=== PATIENT | female | born 1990 | race Two or more races ===

== ENCOUNTER 2018-09-20 10:21 | Inpatient (IN) | payer OTHER ==
[~2018-09-20] VITALS: Ht 148 cm; Wt 53.5 kg
[2018-09-20 11:20] LABS: EOSINOPHILS % (AUTO) 2.1 % (1.0-6.0); HEMATOCRIT 35.9 % (36-46); HEMOGLOBIN 12.4 g/dL (12.0-16.0); LYMPHOCYTES # (AUTO) 2.3 K/uL (1.0-4.8); LYMPHOCYTES % (AUTO) 27.2 % (22.0-44.0); MEAN CORPUSCULAR HEMOGLOBIN 27.4 pg (26.0-34.0); MEAN CORPUSCULAR HGB CONC 34.5 G/dL (31.0-37.0); MEAN CORPUSCULAR VOLUME 79 fL (80-100); MONOCYTES # (AUTO) 0.6 K/uL (0.1-1.0); MONOCYTES % (AUTO) 7.2 % (2.0-9.0); NEUTROPHILS # (AUTO) 5.3 K/uL (1.8-7.7); NEUTROPHILS % (AUTO) 62.5 % (40.0-70.0); RED BLOOD CELL COUNT(AUTO) 4.53 MIL/uL (4.00-5.20); RED CELL DISTRIBUTION WIDTH 14.3 % (11.5-14.5)
[2018-09-20 11:37] LABS: ANION GAP 8 mmol/L (8-16); CALCIUM, TOTAL 9.2 mg/dL (8.8-10.5); CARBON DIOXIDE 26 mmol/L (22-29); CHLORIDE 104 mmol/L (98-107); CREATININE 0.51 mg/dL (0.60-1.30); GLOMERULAR FILTR. RATE CALC > 60 mL/min (>60); GLUCOSE,RANDOM 95 mg/dL (70-110); SODIUM SERUM 138 mmol/L (136-145); UREA NITROGEN, BLOOD 10 mg/dL (7-18)
[2018-09-20 11:40] LABS: ALANINE AMINOTRANSFERASE 19 U/L (12-78); ALBUMIN 2.5 g/dL (3.4-5.0); ALKALINE PHOSPHATASE 194 U/L (46-116); ASPARTATE AMINOTRANSFERASE 22 U/L (15-37); BILIRUBIN,TOTAL 0.4 mg/dL (0.1-1.0); TOTAL PROTEIN, SERUM 6.8 g/dL (6.4-8.2); URIC ACID 5.8 mg/dL (2.6-7.2)
[2018-09-20 12:26] LABS: PLATELET COUNT (AUTO) 89 K/uL (150-450); PLATELET MORPHOLOGY COMMENT GIANT PLTS PRESENT
[2018-09-20] MEDS ORDERED: RINGERS SOLUTION,LACTATED 1,000 ML IV ONE (15:49)
[2018-09-20] MEDS ORDERED: METOCLOPRAMIDE HCL 5 MG/ML 2 ML VIAL IVP ONE (16:00)
[2018-09-20] MEDS ORDERED: CITRIC ACID/SODIUM CITRATE 30 ML SOLUTION UDCUP PO ONE (16:00)
[2018-09-20 16:40] VITALS: BP 130/88
[2018-09-20] MEDS ORDERED: FOLI0.4T14 PO (16:50)
[2018-09-20] MEDS ORDERED: METF-445 PO (16:50)
[2018-09-20] MEDS ORDERED: FERR-89 PO (16:50)
[2018-09-20] MEDS ORDERED: CALC-1038 PO (16:50)
[2018-09-20] MEDS ORDERED: INSU100V SQ (16:50)
[2018-09-20] MEDS ORDERED: PREN1TAB80 PO (16:50)
[2018-09-20] MEDS ORDERED: INSNPH SQ ×2 (16:50)
[2018-09-20] MEDS ORDERED: FentaNYL CITRATE-PF 100 MCG/2 ML VIAL ONE (17:27)
[2018-09-20] MEDS ORDERED: BUPIVACAINE HCL/DEX-WATER/PF 0.75% 2 ML AMP ONE (17:28)
[2018-09-20] MEDS ORDERED: ACETAMINOPHEN 1000 MG/ISO-OSM 100 ML IV ONE (17:28)
[2018-09-20] MEDS ORDERED: MORPHINE SULFATE/PF 0.5 MG/ML 10 ML AMP ONE (17:28)
[2018-09-20] MEDS ORDERED: DEXTROSE 5%-LACTATED RINGERS 1,000 ML ONE (18:06)
[2018-09-20] MEDS ORDERED: DEXTROSE 5%-0.2% SODIUM CHL 1,000 ML IV ONE (18:06)
[2018-09-20] MEDS ORDERED: DEXTROSE 50%-WATER 25 GM/50 ML SYRINGE IVP ONE (18:15)
[2018-09-20] MEDS ORDERED: ONDANSETRON HCL 4 MG/2 ML VIAL IVP PRN ×2 (18:30→18:45)
[2018-09-20] MEDS ORDERED: NALBUPHINE HCL 10 MG/ML VIAL IVP PRN ×3 (18:30→18:45)
[2018-09-20] MEDS ORDERED: DiphenhydrAMINE HCL 50 MG/ML VIAL IVP PRN ×2 (18:30→18:45)
[2018-09-20] MEDS ORDERED: DEXAMETHASONE SOD PHOS 4 MG/ML VIAL IVP PRN (18:30)
[2018-09-20] MEDS ORDERED: NALOXONE HCL 0.4 MG/ML VIAL IVP PRN (18:45)
[2018-09-20] MEDS ORDERED: MORPHINE SULFATE 10 MG/ML SYRINGE IVP PRN (18:45)
[2018-09-20] MEDS ORDERED: FentaNYL CITRATE-PF 100 MCG/2 ML VIAL IVP PRN (18:45)
[2018-09-20] MEDS ORDERED: ACETAMINOPHEN/CODEINE 300-30 MG TABLET PO PRN ×2 (19:00)
[2018-09-20] MEDS ORDERED: LANOLIN 7 GM OINTMENT TP PRN (19:00)
[2018-09-20 19:34] LABS: GLUCOMETER DEV NAME(LOC) 4S.; GLUCOSE,POINT OF CARE 111 MG/DL (70-110)
[2018-09-20] MEDS ORDERED: ONDANSETRON HCL 4 MG/2 ML VIAL ONE (19:36)
[2018-09-20] MEDS ORDERED: OXYGEN THERAPY IH SCH ×3 (20:00)
[2018-09-20] MEDS ORDERED: DEXTROSE 5%-0.45% SODIUM CHL 1,000 ML IV ONE (20:08)
[2018-09-20 20:49] LABS: GLUCOMETER DEV NAME(LOC) 4S.; GLUCOSE,POINT OF CARE 122 MG/DL (70-110)
[2018-09-20] MEDS: DEXTROSE 5%-0.45% SODIUM CHL 1,000 ML IV SCH (20:51)
[2018-09-20] MEDS: MAGNESIUM HYDROXIDE SUSPENSION 30 ML UDCUP PO SCH (22:28)
[2018-09-21] MEDS: ACETAMINOPHEN 1000 MG/ISO-OSM 100 ML IV SCH ×2 (02:25→10:29)
[2018-09-21] MEDS ORDERED: 0.9% SODIUM CHLORIDE 10 ML VIAL IVP ONE (02:41)
[2018-09-21] MEDS ORDERED: OXYTOCIN 10 UNITS/ML VIAL IM ONE (02:41)
[2018-09-21] MEDS ORDERED: EPHEDrine SULFATE 50 MG/ML VIAL IM ONE (02:41)
[2018-09-21] MEDS: DEXTROSE 5%-0.45% SODIUM CHL 1,000 ML IV SCH (05:59)
[2018-09-21 06:10] LABS: GLUCOMETER DEV NAME(LOC) 4S.; GLUCOSE,POINT OF CARE 188 MG/DL (70-110)
[2018-09-21] MEDS ORDERED: RINGERS SOLUTION,LACTATED 1,000 ML IV SCH (06:45)
[2018-09-21] MEDS ORDERED: PNEUMOCOCCAL VACCINE POLYVALENT 0.5 ML VIAL [PPSV23] IM ONE (07:45)
[2018-09-21 08:40] LABS: BASOPHILS % (AUTO) 0.2 % (0.0-2.0); EOSINOPHILS % (AUTO) 0.1 % (1.0-6.0); HEMATOCRIT 31.5 % (36-46); HEMOGLOBIN 10.8 g/dL (12.0-16.0); LYMPHOCYTES # (AUTO) 0.9 K/uL (1.0-4.8); LYMPHOCYTES % (AUTO) 7.8 % (22.0-44.0); MEAN CORPUSCULAR HEMOGLOBIN 27.5 pg (26.0-34.0); MEAN CORPUSCULAR HGB CONC 34.3 G/dL (31.0-37.0); MEAN CORPUSCULAR VOLUME 80 fL (80-100); MONOCYTES # (AUTO) 0.9 K/uL (0.1-1.0); MONOCYTES % (AUTO) 7.7 % (2.0-9.0); NEUTROPHILS # (AUTO) 9.8 K/uL (1.8-7.7); NEUTROPHILS % (AUTO) 84.2 % (40.0-70.0); RED BLOOD CELL COUNT(AUTO) 3.94 MIL/uL (4.00-5.20); RED CELL DISTRIBUTION WIDTH 14.2 % (11.5-14.5)
[2018-09-21 09:26] LABS: PLATELET COUNT (AUTO)-OB 85 K/uL (150-450); PLATELET MORPHOLOGY COMMENT LARGE PLTS PRESENT
[2018-09-21] MEDS ORDERED: IBUPROFEN 800 MG TABLET PO SCH (12:00)
[2018-09-21] MEDS: IBUPROFEN 600 MG TABLET PO SCH (20:13)
[2018-09-21] MEDS: MetFORMIN HCL 500 MG TABLET PO SCH (20:55)
[2018-09-21 21:09] LABS: GLUCOSE,POINT OF CARE 144 MG/DL (70-110)
[2018-09-21] MEDS: MAGNESIUM HYDROXIDE SUSPENSION 30 ML UDCUP PO SCH (22:07)
[2018-09-22] MEDS: IBUPROFEN 600 MG TABLET PO SCH ×4 (02:07→20:09)
[2018-09-22 05:43] LABS: BASOPHILS % (AUTO) 0.4 % (0.0-2.0); EOSINOPHILS % (AUTO) 1.2 % (1.0-6.0); HEMATOCRIT 30.6 % (36-46); HEMOGLOBIN 10.7 g/dL (12.0-16.0); LYMPHOCYTES # (AUTO) 2.1 K/uL (1.0-4.8); LYMPHOCYTES % (AUTO) 16.3 % (22.0-44.0); MEAN CORPUSCULAR HGB CONC 34.8 G/dL (31.0-37.0); MEAN CORPUSCULAR VOLUME 80 fL (80-100); MONOCYTES % (AUTO) 7.9 % (2.0-9.0); NEUTROPHILS # (AUTO) 9.7 K/uL (1.8-7.7); NEUTROPHILS % (AUTO) 74.2 % (40.0-70.0); PLATELET COUNT (AUTO)-OB 113 K/uL (150-450); RED BLOOD CELL COUNT(AUTO) 3.82 MIL/uL (4.00-5.20)
[2018-09-22] MEDS: MetFORMIN HCL 500 MG TABLET PO SCH ×2 (09:05→20:00)
[2018-09-22] MEDS: MAGNESIUM HYDROXIDE SUSPENSION 30 ML UDCUP PO SCH ×2 (09:05→20:36)
[2018-09-22] MEDS ORDERED: IBUPROFEN 600 MG TABLET PO SCH ×2 (20:00)
[2018-09-22 23:09] LABS: GLUCOMETER DEV NAME(LOC) 4S.; GLUCOSE,POINT OF CARE 180 MG/DL (70-110)
[2018-09-23] MEDS: IBUPROFEN 600 MG TABLET PO SCH ×3 (03:29→14:42)
[2018-09-23 05:54] LABS: GLUCOMETER DEV NAME(LOC) 4S.; GLUCOSE,POINT OF CARE 74 MG/DL (70-110)
[2018-09-23] MEDS: MetFORMIN HCL 500 MG TABLET PO SCH (08:00)
[2018-09-23] MEDS ORDERED: ACET-2744 PO (13:56)
[2018-09-23] MEDS ORDERED: IBUP-2070 PO (13:57)
[2018-09-23] MEDS ORDERED: DOCU250C91 PO (13:58)
[2018-09-23] MEDS ORDERED: DSS100 PO (13:58)
== END 2018-09-23 19:05 | disposition home or self-care (01) | DRG 787 ==
LOC: 4S 10:21 → OBSVTOIN 10:21 → 4S 09-21 13:59
PROVIDERS: ADMIT Obstetrics & Gynecology; ATTEND Obstetrics & Gynecology
PROC: 10D00Z1 Extraction of Products of Conception, Low, Open Approach (ICD-10-PCS; principal; 2018-09-20)
DX: O24.424 Gestational diabetes mellitus in childbirth, insulin controlled (principal); O99.12 Other diseases of the blood and blood-forming organs and certain disorders involving the immune mechanism complicating childbirth; D69.6 Thrombocytopenia, unspecified; O32.8XX0 Maternal care for other malpresentation of fetus, not applicable or unspecified; O13.4 Gestational [pregnancy-induced] hypertension without significant proteinuria, complicating childbirth; Z3A.37 37 weeks gestation of pregnancy; Z37.0 Single live birth
CPT/HCPCS: 82947; 83036; 84550; 86850; 86900; 86901; 86920; 87081; J0131; J0690; J2274; J2300; J2405; J2590; J2765; J3010; J3490; J7120